=== PATIENT | male | born 1975 | race American Indian/Alaskan Native ===

== ENCOUNTER 2018-08-21 14:00 | Emergency (ER) | payer OTHER ==
[2018-08-21 14:08] VITALS: BP 142/90
[2018-08-21] MEDS ORDERED: SOLU-Medrol IM ONE (15:23)
[2018-08-21] MEDS ORDERED: PERCOCET 5/325 PO STA (15:23)
--- NOTE | 2018-08-21 15:35 | Emergency Department Report ---
ED Back Pain/Injury HPI - General Chief Complaint: Back Pain/Injury Stated Complaint: BCAK PAIN/L LEG NUMBNESS Time Seen by Provider: 08/21/18 15:07 Source: patient Limitations: No Limitations - History of Present Illness Initial Comments: 43-year-old male position was department complaining of sudden onset of left lower back pain with weakness but there is no incontinence, no saddle paresthesias noted. No urinary retention. States that he had a similar episode about 6 years ago while living in [place], which was resolved with sterile shot. He denies any precipitating factors leading to this onset of pain. MD Complaint: back pain -: Sudden Similar Symptoms Previously: Yes Place: home Severity: mild Quality: sharp Consistency: constant Improves With: none Worsens With: movement, sitting upright, walking Associated Symptoms: other (numbness to his left leg and says it feels a little weak.). denies: chest pain, numbness, difficulty walking, cough, difficulty urinating, incontinence, nausea/vomiting, shortness of breath - Related Data Previous Rx's Medication Instructions Recorded Last Taken Type Ketorolac [Toradol] 10 mg PO Q6H PRN #15 tablet 08/21/18 Unknown Rx Methocarbamol [Robaxin] 750 mg PO Q8H PRN #21 tablet 08/21/18 Unknown Rx Allergies Allergy/AdvReac Type Severity Reaction Status Date / Time No Known Allergies Allergy Unverified 08/21/18 14:01 ED Review of Systems ROS: Stated complaint: BCAK PAIN/L LEG NUMBNESS Other details as noted in HPI Constitutional: denies: chills, fever Eyes: denies: eye pain, eye discharge, vision change ENT: denies: ear pain, throat pain Respiratory: denies: cough, shortness of breath, wheezing Cardiovascular: denies: chest pain, palpitations Endocrine: no symptoms reported Gastrointestinal: denies: abdominal pain, nausea, diarrhea Genitourinary: denies: urgency, dysuria Musculoskeletal: denies: back pain, joint swelling, arthralgia Skin: denies: rash, lesions Neurological: denies: headache, weakness, paresthesias Psychiatric: denies: anxiety, depression Hematological/Lymphatic: denies: easy bleeding, easy bruising ED Past Medical Hx - Past Medical History Previous Medical History?: No - Surgical History Past Surgical History?: No - Social History Smoking Status: Former Smoker Substance Use Type: Alcohol - Medications Home Medications: Home Medications Medication Instructions Recorded Confirmed Last Taken Type Ketorolac [Toradol] 10 mg PO Q6H PRN #15 tablet 08/21/18 Unknown Rx Methocarbamol [Robaxin] 750 mg PO Q8H PRN #21 tablet 08/21/18 Unknown Rx ED Physical Exam - General Limitations: No Limitations General appearance: alert, in no apparent distress - Head Head exam: Present: atraumatic, normocephalic - Eye Eye exam: Present: normal appearance, PERRL - ENT ENT exam: Present: normal exam, mucous membranes moist - Neck Neck exam: Present: normal inspection - Respiratory Respiratory exam: Present: normal lung sounds bilaterally. Absent: respiratory distress - Cardiovascular Cardiovascular Exam: Present: regular rate, normal rhythm. Absent: systolic murmur, diastolic murmur, rubs, gallop - GI/Abdominal GI/Abdominal exam: Present: soft, normal bowel sounds - Rectal Rectal exam: Present: deferred - Extremities Exam Extremities exam: Present: normal inspection - Back Exam Back exam: Present: normal inspection, paraspinal tenderness (left sacroiliac joint region. Pain was seated straight leg raise.). Absent: muscle spasm - Neurological Exam Neurological exam: Present: alert, oriented X3, CN II-XII intact, other (. M oves toes and feet well). Absent: motor sensory deficit - Psychiatric Psychiatric exam: Present: normal affect, normal mood - Skin Skin exam: Present: warm, dry, intact, normal color. Absent: rash ED Course Vital Signs 08/21/18 08/21/18 14:05 15:28 Temperature 98.6 F Pulse Rate 79 Respiratory 18 18 Rate Blood Pressure 142/90 O2 Sat by Pulse 98 Oximetry ED Medical Decision Making - Radiology Data Radiology results: report reviewed ([facility] ) [facility] [address] [place] [address] Cat Scan Report Signed Patient: SUZI RUFFIN MR#: [id number] : 1975 Acct:[id number] Age/Sex: 43 / M ADM Date: 08/21/18 Loc: ED Attending Dr: Ordering Physician: RADAMES CORONEL Date of Service: 08/21/18 Procedure(s): CT lumbar spine wo con Accession Number(s): [id number] cc: RADAMES CORONEL PROCEDURE: CT LUMBAR SPINE WO CON TECHNIQUE: CT examination of the lumbar spine without IV contrast HISTORY: lbp and numbness to left leg with weakness COMPARISONS: None FINDINGS: Slight rotatory lumbar curvature with mid left apex. Vertebral compression fracture: None Spondylolysis: L5 right side Anterolisthesis: L2-3 trace Retrolisthesis: L3-4 trace, L4-5 trace Disc narrowing: None Discogenic degenerative gas formation: None Degenerative hypertrophic facet arthrosis, ligamentum flavum hypertrophy, vertebral endplate hypertrophy, and disc bulge contribute to neural foraminal stenosis. Soft tissue windows suggest stenosis as follows: Right neural foraminal stenosis: L3-4 slight, L4-5 moderate to severe, L5-S1 slight Left neural foraminal stenosis: L2-3 slight, L3-4 moderate, L4-5 slight Soft tissue windows suggest: Diffuse disc bulge: L2-3 slight, L3-4 slight to moderate with left predominance, L4-5 moderate with left predominance, L5-S1 slight with right predominance Focal disc protrusion: None Central canal stenosis: L2-3 slight, L3-4 slight IMPRESSION: No acute skeletal pathology Slight rotatory lumbar curvature with mid left apex Multilevel degenerative change, spondylolisthesis, and neural foraminal stenosis. Soft tissue windows suggest multilevel disc bulge and central canal stenosis This document is electronically signed by Juliano Haas MD., August 21 2018 04:39:28 PM ET Transcribed By: BAL Dictated By: JULIANO HAAS MD Electronically Authenticated By: JULIANO HAAS MD Signed Date/Time: 08/21/18 1641 - Medical Decision Making Last patient. Advised patient findings of the CT scan and the the follow-up with a specialistororbitalsbyspecialistfordefinitivemanagement.Advisedhimtheneedof[facility] forfurtherevaluationofthislowbackpainissue. Critical care attestation.: If time is entered above; I have spent that time in minutes in the direct care of this critically ill patient, excluding procedure time. ED Disposition Clinical Impression: Lower back pain, Lumbar stenosis, Lumbar disc herniation Disposition: - TO HOME OR SELFCARE Is pt being admited?: No Does the pt Need Aspirin: No Condition: Stable Instructions: Lumbar Disc Herniation (ED), Lumbar Radiculopathy (ED), Low Back Strain (ED) Prescriptions: Methocarbamol [Robaxin] 750 mg PO Q8H PRN #21 tablet PRN Reason: Spasms Ketorolac [Toradol] 10 mg PO Q6H PRN #15 tablet PRN Reason: Pain Referrals: [facility] MD NEREIDA [Primary Care Provider] - 3-5 Days YARELY STANFORD MD [Staff Physician] - 3-5 Days
--- NOTE | 2018-08-21 16:41 | Cat Scan Report ---
PROCEDURE: CT LUMBAR SPINE WO CON TECHNIQUE: CT examination of the lumbar spine without IV contrast HISTORY: lbp and numbness to left leg with weakness COMPARISONS: None FINDINGS: Slight rotatory lumbar curvature with mid left apex. Vertebral compression fracture: None Spondylolysis: L5 right side Anterolisthesis: L2-3 trace Retrolisthesis: L3-4 trace, L4-5 trace Disc narrowing: None Discogenic degenerative gas formation: None Degenerative hypertrophic facet arthrosis, ligamentum flavum hypertrophy, vertebral endplate hypertro phy, and disc bulge contribute to neural foraminal stenosis. Soft tissue windows suggest stenosis as follows: Right neural foraminal stenosis: L3-4 slight, L4-5 moderate to severe, L5-S1 slight Left neural foraminal stenosis: L2-3 slight, L3-4 moderate, L4-5 slight Soft tissue windows suggest: Diffuse disc bulge: L2-3 slight, L3-4 slight to moderate with left predominance, L4-5 moderate with l eft predominance, L5-S1 slight with right predominance Focal disc protrusion: None Central canal stenosis: L2-3 slight, L3-4 slight IMPRESSION: No acute skeletal pathology Slight rotatory lumbar curvature with mid left apex Multilevel degenerative change, spondylolisthesis, and neural foraminal stenosis. Soft tissue windows suggest multilevel disc bulge and central canal stenosis This document is electronically signed by Juliano Haas MD., August 21 2018 04:39:28 PM ET
== END 2018-08-21 17:54 | disposition home or self-care (01) ==
LOC: ED 14:00
DX: M48.061 Spinal stenosis, lumbar region without neurogenic claudication (principal); M51.26 Other intervertebral disc displacement, lumbar region; Z87.891 Personal history of nicotine dependence
CPT/HCPCS: 72131; 96372; 99283; J2930